=== PATIENT | female | born 1955 | race Caucasian/White ===

== ENCOUNTER 2018-11-26 00:59 | Emergency (ER) | payer MEDICAID, OTHER ==
[~2018-11-26] VITALS: Ht 167.6 cm; Wt 95.3 kg
[2018-11-26] MEDS ORDERED: LACTATED RINGERS 1,000 ML IV ONE (02:05)
[2018-11-26 02:12] LABS: BILIRUBIN,URINE NEGATIVE (NEGATIVE); CLARITY,URINE CLEAR; COLOR,URINE YELLOW; GLUCOSE, URINE (UA) NEGATIVE (NEGATIVE); KETONES,URINE NEGATIVE (NEGATIVE); LEUKOCYTE ESTERASE ,URINE NEGATIVE (NEGATIVE); NITRITE,URINE NEGATIVE (NEGATIVE); PH,URINE 7 (5-9); PROTEIN,URINE NEGATIVE (NEGATIVE); UROBILINOGEN,URINE NORMAL (NORMAL)
--- NOTE | 2018-11-26 02:13 | ED Abdominal Pain ---
General Chief Complaint: Abdominal/GI Problems Stated Complaint: LOWER ABD PAIN Nursing Triage Note: INTERMITTANT LLQ ABDOMINAL PAIN Sepsis Screen: No Definite Risk Source of Information: Patient, Spouse Exam Limitations: No Limitations History of Present Illness Date Seen by Provider: Nov 26, 2018 Time Seen by Provider: 01:53 Initial Comments The patient presents to the ER by private conveyance with her spouse and chief complaint she's having some left lower quadrant abdominal pain since , 4 days ago now. She says it's about a 2 out of 10 at rest but when she gets up and moves around or shakes it becomes about 8 out of 10. She went to her doctor in [place] and was told it might be constipation and suggested clean out. 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 She got some relief for that day but the pain came back Tuesday so she drink the other half and had some more bowel movements. Her pain is not gone away. It is cons tant left lower quadrant abdominal pain without blood in the stool. She does not have a history of irritable bowel, inflammatory bowel, diverticulitis. She doesn't history of hemorrhoids. She's had a and a tubal ligation but no other abdominal surgeries. She had a colonoscopy 9 years ago which was normal no mention of diverticula or polyps. She has another scheduled colonoscopy for cancer screening on Tuesday, 2 days from now. Her plan was to go home and see her doctor again but her pain was so great tonight after riding around in the that she decided to be seen in the ER. No fevers chills nausea vomiting sweats short of breath chest pain. No unexpected weight loss or gain. Does not take routine medication. No other significant medical history. She said she did take some prednisone recently last week for a left ear effusion. Patient denies taking any opiates. She takes Flonase, Mucinex and Claritin. Allergies and Home Medications Allergies Coded Allergies: Penicillins (Verified Allergy, Unknown, 11/26/18) latex (Verified Allergy, Unknown, 11/26/18) Patient Home Medication List Home Medication List Reviewed: Yes Review of Systems Review of Systems Constitutional: No chills, No diaphoresis, No fever EENTM: No Blurred Vision, No Double Vision Respiratory: Cough (occasionally); Denies Shortness of Air Cardiovascular: Denies Chest Pain, Denies Edema Gastrointestinal: See HPI, Abdominal Pain; Denies Blood Streaked Stools; Constipated; Denies Diarrhea, Denies Difficulty Swallowing, Denies Nausea Genitourinary: Denies Burning, Denies Discharge Musculoskeletal: No back pain, No joint pain Skin: No pruritus, No rash Past Jemozkr-[id number]-Vuedft Hx Patient Social History Alcohol Use: Denies Use Recreational Drug Use: No Smoking Status: Never a Smoker 2nd Hand Smoke Exposure: No Recent Foreign Travel: No Contact w/Someone Who Travel: No Recent Infectious Disease Expo: No Recent Hopitalizations: No Physical Abuse: No Sexual Abuse: No Mistreated: No Fear: No Immunizations Up To Date Tetanus Booster (TDap): Unknown Seasonal Allergies Seasonal Allergies: Yes Past Medical History Surgeries: Yes (D&C) Abdominal, Section, Lumpectomy, Orthopedic, Rectal Respiratory: No Cardiac: No Neurological: No : No Genitourinary: No Gastrointestinal: No Musculoskeletal: No Endocrine: No HEENT: No Cancer: Yes Breast Did You Recieve Any Treatments: Yes What Type of Treatment Did You: Surgical Intervention Psychosocial: No Integumentary: No Blood Disorders: No Physical Exam Vital Signs Vital Signs - First Documented 11/26/18 01:36 Temp 97.9 Pulse 79 Resp 16 B/P (MAP) 119/99 (106) Pulse Ox 96 O2 Delivery Room Air Capillary Refill : Less Than 3 Seconds Height/Weight/BMI Height: 5'6.00" Weight: 210lbs. oz. 95.732410uw; BMI Method:Stated General Appearance: WD/WN, no apparent distress HEENT: PERRL/EOMI, normal ENT inspection, pharynx normal, other (mild clear effusion without loss of landmarks of the bilateral TMs.) Neck: full range of motion, normal inspection Respiratory: lungs clear, normal breath sounds, no respiratory distress, no accessory muscle use Cardiovascular: normal peripheral pulses, regular rate, rhythm, no edema Peripheral Pulses: 2+ Dorsalis Pedis (R), 2+ Left Dors-Pedis (L) Gastrointestinal: normal bowel sounds, soft, no organomegaly, tenderness (over the left lower quadrant but no Rovsing sign, psoas sign, mesenteric signs) Extremities: normal range of motion, non-tender, normal inspection, normal capillary refill Neurologic/Psychiatric: alert, normal mood/affect, oriented x 3 Skin: normal color, warm/dry Progress/Results/Core Measures Results/Orders Lab Results Laboratory Tests Test 11/26/18 01:50 11/26/18 02:10 Range/Units Urine Color YELLOW Urine Clarity CLEAR Urine pH 7 5-9 Urine Specific [place] 1.010 L 1.016-1.022 Urine Protein NEGATIVE NEGATIVE Urine Glucose (UA) NEGATIVE NEGATIVE Urine Ketones NEGATIVE NEGATIVE Urine Nitrite NEGATIVE NEGATIVE Urine Bilirubin NEGATIVE NEGATIVE Urine Urobilinogen NORMAL NORMAL MG/DL Urine Leukocyte Esterase NEGATIVE NEGATIVE Urine RBC (Auto) 2+ H NEGATIVE Urine RBC 5-10 H /HPF Urine WBC NONE /HPF Urine Squamous Epithelial Cells 10-25 H /HPF Urine Crystals NONE /LPF Urine Bacteria FEW H /HPF Urine Casts NONE /LPF Urine Mucus NEGATIVE /LPF Urine Culture Indicated NO White Blood Count 7.8 4.3-11.0 10^3/uL Red Blood Count 4.57 4.35-5.85 10^6/uL Hemoglobin 12.9 11.5-16.0 G/DL Hematocrit 41 35-52 % Mean Corpuscular Volume 89 80-99 FL Mean Corpuscular Hemoglobin 28 25-34 PG Mean Corpuscular Hemoglobin Concent 32 32-36 G/DL Red Cell Distribution Width 14.7 H 10.0-14.5 % Platelet Count 264 130-400 10^3/uL Mean Platelet Volume 9.5 7.4-10.4 FL Neutrophils (%) (Auto) 48 42-75 % Lymphocytes (%) (Auto) 39 12-44 % Monocytes (%) (Auto) 10 0-12 % Eosinophils (%) (Auto) 3 0-10 % Basophils (%) (Auto) 0 0-10 % Neutrophils # (Auto) 3.8 1.8-7.8 X 10^3 Lymphocytes # (Auto) 3.0 1.0-4.0 X 10^3 Monocytes # (Auto) 0.8 0.0-1.0 X 10^3 Eosinophils # (Auto) 0.2 0.0-0.3 10^3/uL Basophils # (Auto) 0.0 0.0-0.1 10^3/uL Sodium Level 142 135-145 MMOL/L Potassium Level 4.1 3.6-5.0 MMOL/L Chloride Level 104 98-107 MMOL/L Carbon Dioxide Level 24 21-32 MMOL/L Anion Gap 14 5-14 MMOL/L Blood Urea Nitrogen 10 7-18 MG/DL Creatinine 0.94 0.60-1.30 MG/DL Estimat Glomerular Filtration Rate 60 BUN/Creatinine Ratio 11 Glucose Level 112 H 70-105 MG/DL Calcium Level 9.3 8.5-10.1 MG/DL Corrected Calcium 9.4 8.5-10.1 MG/DL Total Bilirubin 0.5 0.1-1.0 MG/DL Aspartate Amino Transf (AST/SGOT) 19 5-34 U/L Alanine Aminotransferase (ALT/SGPT) 21 0-55 U/L Alkaline Phosphatase 107 40-136 U/L C-Reactive Protein High Sensitivity 1.99 H 0.00-0.50 MG/DL Total Protein 7.2 6.4-8.2 GM/DL Albumin 3.9 3.2-4.5 GM/DL My Orders Orders - ANA WALKER Ua Culture If Indicated (11/26/18 01:01) Cbc With Automated Diff (11/26/18 02:05) Comprehensive Metabolic Panel (11/26/18 02:05) Hs C Reactive Protein (11/26/18 02:05) Ct Abdomen/Pelvis W (11/26/18 02:05) Ed Iv/Invasive Line Start (11/26/18 02:05) Lactated Ringers (Lr 1000 Ml Iv Solution (11/26/18 02:05) Medications Given in ED Current Medications Medications Dose Ordered Sig/Gabriela Route Start Time Stop Time Status Last Admin Dose Admin Lactated Ringer's 1,000 ml @ 0 mls/hr Q0M ONCE IV 11/26/18 02:05 11/26/18 02:07 DC 11/26/18 02:14 0 MLS/HR Vital Signs/I&O 11/26/18 01:36 Temp 97.9 Pulse 79 Resp 16 B/P (MAP) 119/99 (106) Pulse Ox 96 O2 Delivery Room Air Blood Pressure Mean: 106 Progress Progress Note : Time: 02:13 Progress Note Patient's having obstipation partially relieved with treating her constipation but still had about a 10 pain at times and left lower quadrant abdominal pain. Vitals are stable. We've offered to do imaging, fluids and lab. Diagnostic Imaging Diagonstic Imaging: CT (noncontrast) Plain Films/CT/US/NM/MRI: abdomen, pelvis Reviewed: Reviewed [place] Study, Reviewed by Me Departure Impression Primary Impression: Epiploic appendagitis Disposition: HOME, SELF-CARE Condition: Stable Departure-Patient Inst. Decision time for Depature: 03:57 Referrals: NO,LOCAL PHYSICIAN (PCP) Primary Care Physician Patient Instructions: Acute Abdomen (Belly Pain), Adult (DC) Add. Discharge Instructions: A small area of fat on your colon has been strangulated and will resolve on its own usually within 2 weeks. It is not infected. Your goal is to treat the pain typically with Naprosyn 2 capsules twice a day or ibuprofen 800 mg 3 times a day. If you have significant breakthrough pain you can use the hydrocodone one tablet every 6 hours but will increase her constipation. As long as you're not having significant fever, intractable constipation, uncontrollable pain, nausea/vomiting or other worrisome symptoms you can just wait it out. Follow-up with primary care as necessary. Return to the nearest ER if you have significant symptoms. All discharge instructions reviewed with patient and/or family. Voiced understanding. Scripts Hydrocodone Bit/Acetaminophen (Hydrocodone/Acetaminophen 5/325mg Tablet) 1 Tab Tab 1 EACH PO Q4-6HR PRN for PAIN-MODERATE MDD 10 for 3 Days, #10 TAB 0 Refills Prov: ANA WALKER 11/26/18 ANA WALKER Nov 26, 2018 02:12
[2018-11-26 02:19] LABS: BACTERIA,URINE FEW /HPF
[2018-11-26 02:28] LABS: BASOPHILS % (AUTO) 0 % (0-10); EOSINOPHILS # (AUTO) 0.2 10^3/uL (0.0-0.3); EOSINOPHILS % (AUTO) 3 % (0-10); HEMATOCRIT 41 % (35-52); HEMOGLOBIN 12.9 G/DL (11.5-16.0); LYMPHOCYTES % (AUTO) 39 % (12-44); MEAN CORPUSCULAR HEMOGLOBIN 28 PG (25-34); MEAN CORPUSCULAR HGB CONC 32 G/DL (32-36); MEAN CORPUSCULAR VOLUME 89 FL (80-99); MEAN PLATELET VOLUME 9.5 FL (7.4-10.4); MONOCYTES # (AUTO) 0.8 X 10^3 (0.0-1.0); MONOCYTES % (AUTO) 10 % (0-12); NEUTROPHILS # (AUTO) 3.8 X 10^3 (1.8-7.8); NEUTROPHILS % (AUTO) 48 % (42-75); PLATELET COUNT 264 10^3/uL (130-400); RED CELL DISTRIBUTION WIDTH 14.7 % (10.0-14.5); WHITE BLOOD COUNT 7.8 10^3/uL (4.3-11.0)
[2018-11-26 02:46] LABS: ALBUMIN 3.9 GM/DL (3.2-4.5); BILIRUBIN,TOTAL 0.5 MG/DL (0.1-1.0); CALCIUM 9.3 MG/DL (8.5-10.1); CREATININE SERUM 0.94 MG/DL (0.60-1.30); POTASSIUM 4.1 MMOL/L (3.6-5.0); TOTAL PROTEIN 7.2 GM/DL (6.4-8.2)
[2018-11-26] MEDS ORDERED: ACHD5005 PO (03:59)
[2018-11-26 04:09] VITALS: BP 117/77
--- NOTE | 2018-11-26 08:04 | Diagnostic Imaging Report ---
PROCEDURE: CT abdomen and pelvis with contrast. TECHNIQUE: Multiple contiguous axial images were obtained through the abdomen and pelvis after administration of intravenous contrast. Auto Exposure Controls were utilized during the CT exam to meet ALARA standards for radiation dose reduction. INDICATION: Low abdominal pain There are no prior studies available for comparison. The images through the low abdomen and pelvis on the left do show some distortion of the mesenteric fat (images 59-65 of 92). This appearance does suggest epiploic appendagitis. There is no mass or abscess in this area. There may be a few diverticula in the sigmoid and descending colon but there is no sign of acute diverticulitis. There is no pelvic mass or free fluid collection noted. The uterus and urinary bladder are grossly unremarkable. The appendix was not well-visualized but there are no indirect signs of acute appendicitis. The liver, spleen, pancreas, adrenals, gallbladder, kidneys, aorta and inferior vena cava show no sign of an acute abnormality. The stomach is not well-distended and consequently difficult to assess. The bone windows show fairly severe degenerative disc and bony disease at L2-3, L4-5 and L5-S1. There is no acute bony abnormality identified, however. The lung bases are clear. The breasts, where visualized, show no definite mass. IMPRESSION: 1. The distortion of the mesenteric fat in the left lower quadrant does raise the question of epiploic appendagitis. Clinical followup is recommended. 2. There is no acute abnormality of the abdomen or pelvis noted otherwise. 3. There is fairly severe degenerative disc and bone disease at L2-3, L4-5 and L5-S1. Dictated by: Dictated on workstation # [id number]
== END 2018-11-26 04:09 | disposition home or self-care (01) ==
LOC: ER 01:03
DX: K63.89 Other specified diseases of intestine (principal); Z85.3 Personal history of malignant neoplasm of breast; Z98.51 Tubal ligation status; Z88.0 Allergy status to penicillin
CPT/HCPCS: 36415; 74177; 80053; 81000; 85025; 86141